=== PATIENT | female | born 1965 | race Two or more races ===

== ENCOUNTER 2018-09-02 06:46 | Outpatient (CLI) | payer OTHER | END 2018-09-02 06:50 | disposition home or self-care (01) | LOC: LAB 06:46 | DX: I10 Essential (primary) hypertension (principal); E11.9 Type 2 diabetes mellitus without complications; E03.8 Other specified hypothyroidism; E78.2 Mixed hyperlipidemia; M81.0 Age-related osteoporosis without current pathological fracture ==

== ENCOUNTER 2018-09-02 07:29 | Outpatient (CLI) | payer OTHER | END 2018-09-02 07:50 | disposition home or self-care (01) | LOC: MAMO-SONO 07:29 | DX: N62 Hypertrophy of breast (principal); M19.90 Unspecified osteoarthritis, unspecified site ==

== ENCOUNTER 2019-01-06 08:08 | Outpatient (CLI) | payer OTHER | END 2019-01-06 08:10 | disposition home or self-care (01) | LOC: TOM 08:08 | DX: M50.123 Cervical disc disorder at C6-C7 level with radiculopathy (principal) ==

== ENCOUNTER 2024-12-29 07:32 | Outpatient (CLI) | payer OTHER | END 2024-12-29 07:33 | disposition home or self-care (01) | LOC: NUCLEAR 07:32 | PROVIDERS: ATTEND Internal Medicine | DX: I25.110 Atherosclerotic heart disease of native coronary artery with unstable angina pectoris (principal) ==